=== PATIENT | male | born 1950 | race African-American/Black ===

== ENCOUNTER 2017-11-20 07:28 | Day surgery (SDC) | payer MEDICARE ==
[~2017-11-20] VITALS: Ht 180.3 cm; Wt 122.0 kg
--- NOTE | ~2017-11-20 | OP ---
PATIENT NAME: LETHA NORIEGA MEDICAL RECORD: [id number] :48 LOCATION:[facility] ADMISSION DATE: SURGEON: MANNY INGRAM MD DATE OF OPERATION: 11/20/2017 PREOPERATIVE DIAGNOSES: Lumbar spinal stenosis with foraminal stenosis and neurogenic claudication secondary to lumbar spinal stenosis at L4-L5. POSTOPERATIVE DIAGNOSES: Lumbar spinal stenosis with foraminal stenosis and neurogenic claudication secondary to lumbar spinal stenosis at L4-L5. PROCEDURE: Lumbar laminectomy L4-L5 right with sublaminar decompression and bilateral foraminotomies at L4-L5 with METRx retractor. SURGEON: Manny Ingram MD DESCRIPTION AND TECHNIQUE: After induction of general endotracheal anesthesia, the patient was rolled prone on Chun frame. Lumbar spine was prepped and draped in usual sterile fashion. Fluoroscopic x-ray and spinal needle localized the L4-L5 interspace on the right side. A stab incision was created with #11 blade. A series of dilators was used to advance a METRx retractor to the L4-L5 interspace on the right side. Level was confirmed with fluoroscopic x-ray. A Midas Cr drill and microscope was used to perform a laminectomy, medial facetectomy, and foraminotomy at L4-L5 on the right. The METRx retractor was tilted to the opposite side. The spinous process was undermined with Midas Cr drill. Ligamentum flavum was removed from the midline and the opposite foramen under direct microscopic illumination with Cloward rongeurs. Following this, the foraminotomies were accomplished on both sides. The dura was decompressed well on both sides. The wound was irrigated with copious amounts of Ancef irrigant solution. The retractor was removed. The fascia was closed with 2-0 Vicryl suture, the subdermal layer was closed with 3-0 Vicryl suture. The skin was closed with randee. A sterile dressing was applied to the wound. The patient was awakened in good condition and taken to recovery. All counts reported as correct. Estimated blood loss was minimal. TRANSINT:[id number] Voice Confirmation ID: [id number] DOCUMENT ID: [id number] MANNY INGRAM MD at [id number] CC: [id number] DICTATION DATE: 12/25/17 1533 IRONING WORKER: 12/25/17 1606 DEP SDC 11/20/17 [id number] [place] [id number]
[~2017-11-20 07:28] MED LIST: COZAAR100 MG PO; LEVEMIR100 U/M1 SC; OXYBUTYNIN CHLOR5 MG PO; TOPROL XL100 MG PO; ULTRAM50 MG PO; ZANAFLEX2 M1 PO; ZOCOR20 MG PO
[2017-11-20] MEDS ORDERED: PEPCID20 MG PO (08:25)
[2017-11-20] MEDS ORDERED: BAYER CHEWABLE81 MG PO (08:26)
[2017-11-20] MEDS ORDERED: COLCRYS0.6 MG PO (08:26)
[2017-11-20] MEDS ORDERED: ORACIT PO (08:28)
[2017-11-20 08:45] VITALS: BP 178/80; Ht 180.3 cm; Wt 122.0 kg
[2017-11-20 09:43] LABS: HEMOGLOBIN 13.8 g/dL (13.5-17.5); MCH 28.2 pg (26.0-34.0); MCHC 32.9 g/dL (31.0-37.0); MCV 85.9 fL (80.0-100.0); MEAN PLATELET VOLUME 11.8 fL (7.4-10.4); RBC 4.89 10x6/uL (4.20-6.10); RDW 14.1 % (11.5-14.5); WBC 7.4 10x3/uL (4.8-10.8)
[2017-11-20 09:49] LABS: ANION GAP 14.1 mmol/L (8-16); CALCIUM 8.9 mg/dL (8.5-10.1); CARBON DIOXIDE 24.9 mmol/L (21.0-32.0); CREATININE - SERUM 2.5 mg/dL (0.6-1.3)
== END 2017-11-20 17:45 | disposition home or self-care (01) ==
LOC: D.OPS 07:28 → D.PAN 12:15 → D.OPS 17:45
PROVIDERS: Anesthesiology
DX: M48.062 Spinal stenosis, lumbar region with neurogenic claudication (principal); I10 Essential (primary) hypertension; E11.9 Type 2 diabetes mellitus without complications; K21.9 Gastro-esophageal reflux disease without esophagitis; E66.9 Obesity, unspecified; Z01.812 Encounter for preprocedural laboratory examination